=== PATIENT | female | born 1995 | race Caucasian/White ===

== ENCOUNTER 2016-08-30 23:08 | Emergency (ER) | payer OTHER ==
[2016-08-31 01:26] LABS: SPECIFIC GRAVITY 1.015 (1.001-1.030); URINE BILIRUBIN NEGATIVE (NEGATIVE); URINE BLOOD 2+ (NEGATIVE); URINE GLUCOSE (UA) NEGATIVE (NEGATIVE); URINE LEUKOCYTE ESTERASE NEGATIVE (NEGATIVE); URINE NITRITE NEGATIVE (NEGATIVE); URINE PROTEIN NEGATIVE (NEGATIVE); URINE UROBILINOGEN NORMAL (0-1 mg/dl)
[2016-08-31 01:27] LABS: URINE APPEARANCE CLEAR; URINE COLOR LIGHT YELLOW
[2016-08-31 01:31] LABS: HCG,QUALITATIVE URINE NEGATIVE
[2016-08-31] MEDS ORDERED: SODIUM CHLORIDE 0.9% 1,000 ML ONE ×2 (01:44→02:32)
[2016-08-31] MEDS ORDERED: FAMOTIDINE 10 MG/ML 2ML VIAL ONE (01:45)
[2016-08-31] MEDS ORDERED: METOCLOPRAMIDE HCL 5 MG/ML 2ML VIAL ONE (01:45)
[2016-08-31] MEDS ORDERED: DIPHENHYDRAMINE HCL 50 MG/1 ML VIAL ONE (01:45)
[2016-08-31 01:52] LABS: ABSOLUTE NEUTROPHIL COUNT 5.4 K/mm3 (1.8-7.7); BASO % 0.5 % (0.2-1.0); EOS % 0.5 % (0.9-2.9); HEMATOCRIT 38.8 % (37.0-47.0); HEMOGLOBIN 13.3 gm/l (12.0-16.0); IMM NEUT% 0.2 % (0-1); LYMPH # 2.1 (1.0-4.8); LYMPH % 26.3 % (15-45); MEAN CELL VOLUME 88.8 fl (81.0-99.0); MEAN CORPUSCULAR HEMOGLOBIN 30.4 pg (27.0-31.0); MEAN CORPUSCULAR HGB CONC 34.3 g/dl (33.0-37.0); MEAN PLATELET VOLUME 9.4 fl (7.4-10.4); MONO # 0.5 (0.0-0.8); MONO % 6.3 % (4-12); NEUT % 66.2 % (43-75); PLATELET COUNT 260 K/mm3 (130-400)
[2016-08-31 01:55] LABS: URINE BACTERIA 0; URINE EPITHELIAL CELLS RARE /hpf; URINE WBC RARE /hpf
[2016-08-31 02:12] LABS: ALB/GLOB RATIO 1.5 (>1.0); ALBUMIN 4.5 gm/dL (3.5-5.7); MAGNESIUM 2.3 mg/dL (1.9-2.7)
== END 2016-08-31 03:38 | disposition home or self-care (01) ==
LOC: ED 23:08
DX: K29.70 Gastritis, unspecified, without bleeding (principal); F12.90 Cannabis use, unspecified, uncomplicated
CPT/HCPCS: 83690; 81025; 85025; 80053; 83735; 81001; 96375 ×2; 99284 ×2; 96374; 96361 ×2; J1200; J2765; J7030 ×2